=== PATIENT | female | born 1990 | race Hispanic/Latino ===

== ENCOUNTER 2016-10-20 21:55 | Emergency (ER) | payer OTHER ==
[2016-10-20 22:31] VITALS: O2SAT 98
[2016-10-20] MEDS ORDERED: Sodium Chloride 0.9% 1,000 ML IV STA (22:55)
--- NOTE | 2016-10-20 23:00 | ED PDOC ---
HPI:Nausea, Vomiting, Diarrhea Time Seen by Provider: 10/20/16 22:33 Chief Complaint (Nursing): Abdominal Pain Chief Complaint (Provider): vomiting, diarrhea History Per: Patient History/Exam Limitations: no limitations Onset/Duration Of Symptoms: Days (1) Current Symptoms Are (Timing): Still Present Additional History Per: Patient Additional Complaint(s): 26 y/o female presents for eval of multiple episodes of nonbloody diarrhea x 1 day, with one episode of vomiting upon arrival to ED. Associated low back pain , abdominal pain. Denies fever, chest pain, shortness of breath, recent travel , sick contacts, urinary symptoms. Past Medical History Reviewed: Historical Data, Nursing Documentation, Vital Signs Vital Signs: Last Vital Signs Temp 98.5 F 10/20/16 22:27 Pulse 130 H 10/20/16 22:27 Resp 20 10/20/16 22:27 BP 133/91 H 10/20/16 22:27 Pulse Ox 98 10/20/16 22:27 - Medical History PMH: Hypothyroidism - Surgical History Other surgeries: thyroidectomy - Family History Family History: States: Unknown Family Hx - Home Medications Home Medications: Ambulatory Orders Medication Instructions Recorded Dicyclomine [Bentyl] 20 mg PO TID PRN #21 tab 10/21/16 Ondansetron ODT [Zofran ODT] 4 mg PO Q8 PRN #10 odt 10/21/16 - Allergies Allergies/Adverse Reactions: Allergies Allergy/AdvReac Type Severity Reaction Status Date / Time No Known Allergies Allergy Verified 10/20/16 22:27 Review of Systems ROS Statement: Except As Marked, All Systems Reviewed And Found Negative Gastrointestinal: Positive for: Nausea, Vomiting, Abdominal Pain, Diarrhea Musculoskeletal: Positive for: Back Pain Physical Exam - Reviewed Nursing Documentation Reviewed: Yes Vital Signs Reviewed: Yes - Physical Exam Appears: Positive for: Well, Non-toxic, No Acute Distress Head Exam: Positive for: ATRAUMATIC, NORMAL INSPECTION, NORMOCEPHALIC Skin: Positive for: Normal Color Eye Exam: Positive for: Normal appearance ENT: Positive for: Normal ENT Inspection Cardiovascular/Chest: Positive for: Regular Rate, Rhythm Respiratory: Positive for: Normal Breath Sounds Gastrointestinal/Abdominal: Positive for: Bowel Sounds, Soft Back: Positive for: Normal Inspection. Negative for: L CVA Tenderness, R CVA Tenderness Extremity: Positive for: Normal ROM Neurologic/Psych: Positive for: Alert, Oriented - Laboratory Results Result Diagrams: 10/20/16 23:54 10/20/16 23:54 - ECG O2 Sat by Pulse Oximetry: 98 - Progress ED Course And Treament: labs, urine, IV fluids, IV zofran, IV toradol On re-eval, patient resting comfortably; states pain improved. Tolerating PO. Patient educated on findings, discharged with rx Zofran, Bentyl. Advised fluids. Rest. Follow up PMD 2-3 days. Return to ED for worsening/concerning symptoms. Disposition - Clinical Impression Clinical Impression: Gastroenteritis - Patient ED Disposition Is Patient to be Admitted: No Counseled Patient/Family Regarding: Studies Performed, Diagnosis, Need For Followup, Rx Given - Disposition Referrals: [facility] [Outside] Disposition: Routine/Home Disposition Time: 01:10 Condition: IMPROVED Prescriptions: Dicyclomine [Bentyl] 20 mg PO TID PRN #21 tab PRN Reason: Pain, Mild (1-3) Ondansetron ODT [Zofran ODT] 4 mg PO Q8 PRN #10 odt PRN Reason: Nausea/Vomiting Instructions: Gastroenteritis (ED)
[2016-10-21 00:02] LABS: BASO % 0.1 % (0.0-2.0); EOS % 0.4 % (0.0-4.0); HEMATOCRIT 40.3 % (34.0-47.0); LYMPH # 0.4 K/uL (1.0-4.3); LYMPH % 5.4 % (20.0-40.0); MEAN CELL VOLUME 88.8 fl (81.0-99.0); MEAN CORPUSCULAR HEMOGLOBIN 30.1 pg (27.0-31.0); MEAN CORPUSCULAR HGB CONC 33.9 g/dL (33.0-37.0); MEAN PLATELET VOLUME 8.9 fl (7.2-11.7); MONO # 0.4 K/uL (0.0-0.8); NEUT # 7.4 K/uL (1.8-7.0); NEUT % 89.1 % (50.0-75.0); PLATELET COUNT 188 K/uL (130-400); RED CELL DISTRIBUTION WIDTH 12.5 % (11.5-14.5); WHITE BLOOD COUNT 8.3 K/uL (4.8-10.8)
[2016-10-21 00:12] LABS: ALB/GLOB RATIO 1.5 (1.0-2.1); ALKALINE PHOSPHATASE 32 U/L (38-126); ALT/SGPT 34 U/L (9-52); AST/SGOT 21 U/L (14-36); BILIRUBIN,TOTAL 0.7 mg/dl (0.2-1.3); BLOOD UREA NITROGEN 15 mg/dl (7-17); CALCIUM 8.7 mg/dL (8.4-10.2); CARBON DIOXIDE 22 mmol/L (22-30); CHLORIDE 104 mmol/L (98-107); GFR AFRICAN-AMERICAN > 60; GLUCOSE,RANDOM 104 mg/dL (65-105); LIPASE 37 U/L (23-300); POTASSIUM 3.6 MMOL/L (3.6-5.0); SODIUM 139 mmol/l (132-148); TOTAL PROTEIN 7.1 G/DL (6.3-8.2)
[2016-10-21 00:14] LABS: RBC URINE 7 /hpf (0-3); URINE BACTERIA MOD (<OCC); URINE BILIRUBIN NEGATIVE (NEGATIVE); URINE BLOOD NEGATIVE (NEGATIVE); URINE COLOR YELLOW (YELLOW); URINE GLUCOSE (UA) NEG (Normal); URINE KETONE 20 mg/dL (NEGATIVE); URINE LEUKOCYTE ESTERASE TRACE Leu/uL (Negative); URINE PROTEIN NEGATIVE (NEGATIVE); URINE UROBILINOGEN 0.2-1.0 mg/dL (0.2-1.0); WBC URINE 3 /hpf (0-5)
[2016-10-21 01:21] VITALS: BP 122/81; PULSE 105; RESP 18; TEMP 98
[2016-10-21 01:29] LABS: NEUTROPHIL 86 % (42-75); REACTIVE LYMPHOCYTES 2 % (0-0); TOTAL CELLS COUNTED 100
[2016-10-21 01:30] LABS: LARGE PLATELETS PRESENT
== END 2016-10-21 01:49 | disposition home or self-care (01) ==
LOC: H.ER 21:55
DX: K52.9 Noninfective gastroenteritis and colitis, unspecified (principal); E03.9 Hypothyroidism, unspecified
CPT/HCPCS: 80053; 81003; 81025; 83690; 85025; 87086; 96374; 96375; 99283; J1885; J2405; J7040